=== PATIENT | female | born 1985 | race Caucasian/White ===

== ENCOUNTER → 2020-03-10 14:26 | Outpatient (BNVA) | payer OTHER, SELFPAY | PROVIDERS: Family Provider Nurse Practitioner; PCP Family Medicine; Visit Provider Nurse Practitioner Family | DX: Z11.59 Encounter for screening for other viral diseases (principal); J06.9 Acute upper respiratory infection, unspecified | CPT/HCPCS: 87635 ==

== ENCOUNTER 2020-03-15 16:05 | Emergency (ER) | payer OTHER, SELFPAY ==
[2020-03-15 16:08] VITALS: BP 121/82; PULSE 83; RESP 18; TEMP 36.5; O2SAT 97; BMI 22.8
--- NOTE | 2020-03-15 16:38 | XRR_ITS ---
PROCEDURE INFORMATION: Exam: XR Chest, 1 View Exam date and time: 03/15/2020 4:39 PM Age: 34 years old Clinical indication: Chest pain TECHNIQUE: Imaging protocol: XR of the chest Views: 1 view. COMPARISON: No relevant prior studies available. FINDINGS: Lungs: Lungs are clear bilaterally. Pleural space: No pleural effusion. No pneumothorax. Heart/Mediastinum: The cardiac silhouette and mediastinal contours are unremarkable. Bones/joints: Unremarkable for age. XR/XR chest 1V portable [id number] IMPRESSION: No acute cardiopulmonary process.
--- NOTE | 2020-03-15 16:38 | ECG_ITS ---
[facility] Test Date: 2020-03-15 Pat Name: Stephen Gonzalez Department: Room: Gender: Female [employer]: : 1985 Requested By: Maria D Contreras Order Number: [id number] Heber MD: Erik Zamora M.D. Measurements Intervals [place] Rate: 73 P: 74 DC: 154 QRS: 69 QRSD: 88 T: 59 QT: 389 QTc: 431 Interpretive Statements SINUS RHYTHM No previous ECG available for comparison Electronically Signed On 03-15-2020 18:37:36 [employer]RE [employer] by Erik Zamora M.D. [id number]
--- NOTE | 2020-03-15 16:50 | ED_ITS ---
HPI - Chest Pain General: Chief Complaint: Chest Pain Stated Complaint: [facility] sent concerns for blood clot/chest Time Seen by Provider: 03/15/20 16:18 History of Present Illness: HPI narrative: This patient is a 34-year-old female who is very fit and healthy. She comes in today with chest pain that is been going on for several days. She has been sick for 11 days with what sounds like Covid. Her and son both tested positive for Covid. She has had 3 Covid tests which have all been negative. One was done through [facility] as a send out and the other 2 were done at [facility]. 1 was done today at [facility] before she was sent back to the ER and was negative. She has had fevers, cough, shortness of breath and severe body aches. She said most of that had gotten better and she felt okay for a few days but then started getting this chest pain which was present throughout the illness but has worsened. She describes it as being across the lower part of her chest and through around to her back and up under her arms. It is worse with breathing. It is sharp. She also notes that her heart rate is very erratic. She is a runner and normally has a low heart rate in the 60s. She has been checking it since she has not felt well and is noticed a range anywhere from the 40s to 100 depending on her activity. She has no other significant medical history. No history of blood clots or heart problems. She is on dexamethasone and a azithromycin. MD complaint: chest pain Onset (ago): day(s) (11) Timing of current episode: constant Prior episodes: No Onset: during rest Pain location: subxiphoid Pain radiation: right arm, left arm, back, left shoulder and left scapula Severity: moderate Quality: tightness, aching and sharp Relieving factors: nothing Exacerbating factors: inspiration and movement Associated symptoms: Reports dyspnea, fever(s) and nausea; Deny abdominal pain or vomiting Review of Systems General: Reports: 10 or more systems reviewed and unremarkable except in HPI and below Const: Reports: fever(s), chills, fatigue and malaise Eyes: Denies: change in vision ENMT: Denies: odynophagia Card: Reports: chest pain; Denies: swelling of feet/ankles Resp: Reports: dyspnea and non-productive cough; Denies: productive cough GI: Reports: nausea; Denies: abdominal pain or vomiting : Denies: flank pain or difficulty voiding Musc: Denies: neck pain or back pain Skin/Breast: Denies: rash Neuro: Denies: headache(s), numbness in extremities or weakness in extremities Amish/Lymph: Denies: easy bruising or easy bleeding Physical Exam Const: COMMON NORMALS: no acute distress, patient oriented x3, no limitations and alert GENERAL APPEARANCE: cooperative and comfortable HENMT: HEAD & SCALP: normal to inspection FACE & SINUS: normal facial exam Eye: GENERAL EYE: appearance normal, both eyes and all related structures Neck/C-Spine: COMMON NORMALS: supple, no meningeal signs and no JVD Chest: COMMONS NORMALS: normal inspection of the chest Resp: COMMON NORMALS: normal respiratory effort, No use of accessory muscles and clear to auscultation bilaterally AUSCULTATION: clear to auscultation bilaterally Cardio: COMMON NORMALS: no JVD, regular rate, regular rhythm and No murmurs present (Cardio) RATE: regular rate RHYTHM: regular rhythm GI: COMMON NORMALS: Normal to inspection, nondistended, normoactive bowel sounds present, Soft to palpation and non-tender INSPECTION: Yes normal to inspection AUSCULTATION: Yes normoactive bowel sounds PALPATION: Yes Soft to palpation Back/Pelvis: COMMON NORMALS: thoracic and lumbar spine normal to inspection Extremity: COMMON NORMALS: normal to inspection Neuro: COMMON NORMALS: patient oriented x3, moves all extremities, no focal motor deficits and no sensory deficits noted SENSORIUM/ORIENTATION: Yes alert MENINGEAL SIGNS: Yes no meningeal signs Psych: COMMON NORMALS: mental status grossly normal, cooperative and normal affect Skin: COMMON NORMALS: no rashes or lesions noted and turgor normal GENERAL SKIN EXAM: no rashes or lesions noted and turgor normal Course ED course: This patient has been having Covid symptoms for 11 days but has tested negative multiple times. Her son and are both positive. She is here with pain across the lower part of her chest. Assuming that she may have actually had Covid and just tested negative she may be having some sort of myocardial injury but she could also just have pleurisy. Her work-up here is negative including EKG and troponin. I did set her up for an outpatient echo to be sure that structurally everything is normal. She will follow up with her PCP for further management. Vital Signs: Vital signs: Vital Signs Temperature 97.6 F 03/15/20 20:44 Pulse Rate 82 03/15/20 20:44 Respiratory Rate 16 03/15/20 20:44 Blood Pressure 124/62 03/15/20 20:44 Pulse Oximetry 96 03/15/20 20:44 MDM - Chest Pain Lab Data: Labs: Lab Results 03/15/20 03/15/20 03/15/20 Range/Units 11:35 11:35 17:00 WBC (4.0-10.0) 10^3/ uL RBC (4.1-5.3) 10^6/u L Hgb (11.5-15.3) g/dL Hct (37.0-47.0) % MCV (81-99) fL MCH (28.0-34.0) pg MCHC (30.0-36.0) g/dL RDW (12.1-15.1) % Plt Count (130-400) 10^3/c mm MPV (7.4-10.4) fL Neut % (Auto) % Lymph % (Auto) % [place] % (Auto) % Eos % (Auto) % Baso % (Auto) % Neut # (Auto) (1.8-7.7) 10^3/u L Lymph # (Auto) (0.8-4.8) 10^3/u L [place] # (Auto) (0.2-0.9) 10^3/u L Eos # (Auto) (0.0-0.8) 10^3/u L Baso # (Auto) (0.0-0.1) 10^3/u L Nucleated RBC % (a uto) % Nucleated RBCs # /100WBC PT (12.1-14.9) SECO NDS INR (0.8-1.2) D-Dimer (0-0.59) ug/mIFE U Sodium (136-145) mmol/L Potassium (3.5-5.1) mmol/L Chloride (98-107) mmol/L Carbon Dioxide (22-29) mmol/L Anion Gap (5-19) BUN (6-20) mg/dL Creatinine (0.5-0.9) mg/dL GFR Calculation (90-130) mL/min Glucose (65-115) mg/dL Calculated Osmolal ity (285-295) mOsm/k g Calcium (8.5-10.5) mg/dL Total Bilirubin (0.15-1.2) mg/dL AST (0-32) U/L ALT (0-33) U/L Alkaline Phosphata se (35-105) IU/L Creatine Kinase (26-192) U/L Troponin T Baselin e (0-10) ng/L Troponin T 120 Min chicken ranch (0-10) ng/L Delta Troponin T (0-10) ABS# C-Reactive Protein (0.0-4.9) mg/L Total Protein (6.6-8.7) g/dL Albumin (3.5-5.2) g/dL Globulin (1.3-4.6) g/dL Lipase (13-60) U/L HCG, Qual Negative (Negative) Influenza Type A A g Negative (Negative) Influenza Type B A g Negative (Negative) Group A Strep Rapi d Negative (Negative) 03/15/20 03/15/20 03/15/20 Range/Units 17:06 17:06 17:06 WBC 13.1 H (4.0-10.0) 10^3/ uL RBC 4.30 (4.1-5.3) 10^6/u L Hgb 13.7 (11.5-15.3) g/dL Hct 39.6 (37.0-47.0) % MCV 92.1 (81-99) fL MCH 31.9 (28.0-34.0) pg MCHC 34.6 (30.0-36.0) g/dL RDW 11.3 L (12.1-15.1) % Plt Count 379 (130-400) 10^3/c mm MPV 9.8 (7.4-10.4) fL Neut % (Auto) 89.8 % Lymph % (Auto) 6.3 % [place] % (Auto) 3.1 % Eos % (Auto) 0.1 % Baso % (Auto) 0.2 % Neut # (Auto) 11.76 H (1.8-7.7) 10^3/u L Lymph # (Auto) 0.8 (0.8-4.8) 10^3/u L [place] # (Auto) 0.4 (0.2-0.9) 10^3/u L Eos # (Auto) 0.0 (0.0-0.8) 10^3/u L Baso # (Auto) 0.0 (0.0-0.1) 10^3/u L Nucleated RBC % (a uto) 0 % Nucleated RBCs # 0.0 /100WBC PT 13.00 (12.1-14.9) SECO NDS INR 0.96 (0.8-1.2) D-Dimer 0.41 (0-0.59) ug/mIFE U Sodium 138 (136-145) mmol/L Potassium 4.6 (3.5-5.1) mmol/L Chloride 104 (98-107) mmol/L Carbon Dioxide 23 (22-29) mmol/L Anion Gap 15.6 (5-19) BUN 16 (6-20) mg/dL Creatinine 0.8 (0.5-0.9) mg/dL GFR Calculation 82.6 L (90-130) mL/min Glucose 123 H (65-115) mg/dL Calculated Osmolal ity 289 (285-295) mOsm/k g Calcium 10.0 (8.5-10.5) mg/dL Total Bilirubin 0.2 (0.15-1.2) mg/dL AST 25 (0-32) U/L ALT 48 H (0-33) U/L Alkaline Phosphata se 48 (35-105) IU/L Creatine Kinase 33 (26-192) U/L Troponin T Baselin e (0-10) ng/L Troponin T 120 Min chicken ranch (0-10) ng/L Delta Troponin T (0-10) ABS# C-Reactive Protein 0.3 (0.0-4.9) mg/L Total Protein 6.7 (6.6-8.7) g/dL Albumin 4.6 (3.5-5.2) g/dL Globulin 2.1 (1.3-4.6) g/dL Lipase 42 (13-60) U/L HCG, Qual (Negative) Influenza Type A A g (Negative) Influenza Type B A g (Negative) Group A Strep Rapi d (Negative) 03/15/20 03/15/20 Range/Units 17:06 19:03 WBC (4.0-10.0) 10^3/ uL RBC (4.1-5.3) 10^6/u L Hgb (11.5-15.3) g/dL Hct (37.0-47.0) % MCV (81-99) fL MCH (28.0-34.0) pg MCHC (30.0-36.0) g/dL RDW (12.1-15.1) % Plt Count (130-400) 10^3/c mm MPV (7.4-10.4) fL Neut % (Auto) % Lymph % (Auto) % [place] % (Auto) % Eos % (Auto) % Baso % (Auto) % Neut # (Auto) (1.8-7.7) 10^3/u L Lymph # (Auto) (0.8-4.8) 10^3/u L [place] # (Auto) (0.2-0.9) 10^3/u L Eos # (Auto) (0.0-0.8) 10^3/u L Baso # (Auto) (0.0-0.1) 10^3/u L Nucleated RBC % (a uto) % Nucleated RBCs # /100WBC PT (12.1-14.9) SECO NDS INR (0.8-1.2) D-Dimer (0-0.59) ug/mIFE U Sodium (136-145) mmol/L Potassium (3.5-5.1) mmol/L Chloride (98-107) mmol/L Carbon Dioxide (22-29) mmol/L Anion Gap (5-19) BUN (6-20) mg/dL Creatinine (0.5-0.9) mg/dL GFR Calculation (90-130) mL/min Glucose (65-115) mg/dL Calculated Osmolal ity (285-295) mOsm/k g Calcium (8.5-10.5) mg/dL Total Bilirubin (0.15-1.2) mg/dL AST (0-32) U/L ALT (0-33) U/L Alkaline Phosphata se (35-105) IU/L Creatine Kinase (26-192) U/L Troponin T Baselin e 6 (0-10) ng/L Troponin T 120 Min chicken ranch 6.00 (0-10) ng/L Delta Troponin T 0 (0-10) ABS# C-Reactive Protein (0.0-4.9) mg/L Total Protein (6.6-8.7) g/dL Albumin (3.5-5.2) g/dL Globulin (1.3-4.6) g/dL Lipase (13-60) U/L HCG, Qual (Negative) Influenza Type A A g (Negative) Influenza Type B A g (Negative) Group A Strep Rapi d (Negative) Discharge Plan Discharge Patient Disposition: Home Clinical Impression: Acute viral syndrome, Exposure to SARS-associated coronavirus Chest pain Qualifiers: Chest pain type: unspecified Qualified Code(s): R07.9 - Chest pain, unspecified Condition: Stable Prescriptions: No Action albuterol sulfate 90 mcg/actuation HFA aerosol inhaler 2 inh inhalation QID PRN (Reason: shortness of breath or wheezing) Qty: 8.5 RF: 0 dexamethasone 6 mg tablet 6 mg PO DAILY Qty: 7 RF: 0 azithromycin 250 mg tablet See Rx Instructions PO .COMPLEX Qty: 6 RF: 0 ibuprofen 200 mg Tablet 600 mg PO PRN RF: 0 Vitamin C 1 tab PO DAILY RF: 0 Vitamin D3 1 tab PO DAILY RF: 0 zinc 1 tab PO DAILY RF: 0 Discharge Orders: Discharge Order (Routine); Ordered 03/15/20 Ordered By: Maria D Kumar Other Ambulatory Orders: CV echo complete* [id number] (Routine) Timeframe: 1 Week Facility: [facility] - Location: Radiology Ordered By: Maria D Kumar ECG holter monitor 24 hour (Routine) Timeframe: 1 Week Facility: [facility] - Location: Cardiac Diagnostic Laboratory Ordered By: Maria D Kumar Referrals: Home Bourne MD [Primary Care Provider] - Discharge Diet: Usual diet Discharge Activity: Limit activity as instructed Patient Instructions: Chest Pain (ED) Activity Restrictions/Additional Instructions: No strenuous exercise until you have completed follow up with Dr. Bourne. Return to the ED if new or worse symptoms. Coding Level of Care Code ED Emergency Department Nurse for Chg Fwd Exam Comprehensive
[2020-03-15 17:29] LABS: Basophils % 0.2 %; Eosinophils % 0.1 %; Hematocrit 39.6 % (37.0-47.0); Hemoglobin 13.7 g/dL (11.5-15.3); Lymphocytes # 0.8 10^3/uL (0.8-4.8); Lymphocytes % 6.3 %; Mean Corpuscular HGB Conc 34.6 g/dL (30.0-36.0); Mean Corpuscular Hemoglobin 31.9 pg (28.0-34.0); Mean Corpuscular Volume 92.1 fL (81-99); Mean Platelet Volume 9.8 fL (7.4-10.4); Monocytes # 0.4 10^3/uL (0.2-0.9); Monocytes % 3.1 %; Neutrophils # 11.76 10^3/uL (1.8-7.7); Neutrophils % 89.8 %; Nucleated Red Blood Cells % 0 %; Platelet Count 379 10^3/cmm (130-400); Red Cell Distribution Width 11.3 % (12.1-15.1); White Blood Count 13.1 10^3/uL (4.0-10.0)
[2020-03-15 17:46] LABS: HCG Qualitative Urine. Negative (Negative)
[2020-03-15 17:47] VITALS: BP 126/64; PULSE 70; RESP 17; O2SAT 98
[2020-03-15 17:51] LABS: INR 0.96 (0.8-1.2)
[2020-03-15 17:53] LABS: D Dimer 0.41 ug/mIFEU (0-0.59)
[2020-03-15 17:57] LABS: Alanine Aminotransferase 48 U/L (0-33); Albumin Level 4.6 g/dL (3.5-5.2); Alkaline Phosphatase 48 IU/L (35-105); Anion Gap 15.6 (5-19); Aspartate Amino Transferase 25 U/L (0-32); Blood Urea Nitrogen 16 mg/dL (6-20); C Reactive Protein 0.3 mg/L (0.0-4.9); Carbon Dioxide 23 mmol/L (22-29); Chloride 104 mmol/L (98-107); Creatine Phosphokinase 33 U/L (26-192); Globulin 2.1 g/dL (1.3-4.6); Glomerular Filtration Rate 82.6 mL/min (90-130); Glucose 123 mg/dL (65-115); Lipase 42 U/L (13-60); Osmolality Calculated 289 mOsm/kg (285-295); Potassium 4.6 mmol/L (3.5-5.1); Sodium 138 mmol/L (136-145); Total Bilirubin 0.2 mg/dL (0.15-1.2); Total Protein 6.7 g/dL (6.6-8.7)
[2020-03-15 17:58] LABS: Troponin(5th) Baseline 6 ng/L (0-10)
--- NOTE | 2020-03-15 18:38 | ECG_ITS ---
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 Measurements Intervals [place] Rate: 66 P: 78 SD: 164 QRS: 64 QRSD: 97 T: 59 QT: 422 QTc: 443 Interpretive Statements SINUS RHYTHM Compared to ECG 03/15/2020 17:08:14 No significant changes Electronically Signed On 03-15-2020 18:55:02 [employer]TER[employer]PECT[employer] by Erik Zamora M.D. [id number]
[2020-03-15 19:12] VITALS: BP 125/74; PULSE 60; RESP 16; O2SAT 98
[2020-03-15 19:59] LABS: Rapid Strep A Test Negative (Negative)
[2020-03-15 20:09] LABS: Troponin 5 2HR Delta 0 ABS# (0-10)
[2020-03-15 20:09] LABS: Influenza A by IFA Negative (Negative); Influenza B by IFA Negative (Negative)
[2020-03-15 20:44] VITALS: BP 124/62; PULSE 82; RESP 16; TEMP 36.4; O2SAT 96
--- NOTE | 2020-03-16 14:52 | DCPLANNER ---
client integration manager had message to schedule an out patient echo cardiogram and an out patient holter monitor for patient. client integration manager faxed orders to centralized scheduling for echo and [facility] for halter monitor. client integration manager will call for appointment information.
--- NOTE | 2020-03-18 10:55 | DCPLANNER ---
Patient has a follow up appointment scheduled for a monitor at [facility] scheduled for Monday, May 06, 2020 at 1:30. Clinic called patient with appointment information.
--- NOTE | 2020-03-25 10:56 | DCPLANNER ---
An echo was scheduled for patient, the order was cancelled due to patient request. Patient would like to speak with primary care.
--- NOTE | 2020-05-15 14:37 | DCPLANNER ---
Patient had an appointment scheduled with heart care for 05.06.20 - patient did not attend appointment.
== END 2020-03-15 20:46 | disposition home or self-care (01) ==
PROVIDERS: Emergency Provider Emergency Medicine; PCP Family Medicine
DX: Z20.828 Contact with and (suspected) exposure to other viral communicable diseases (principal); B34.9 Viral infection, unspecified; R07.9 Chest pain, unspecified
CPT/HCPCS: 12345; 71045; 80053; 81025; 82550; 83690; 84484; 85025; 85378; 85610; 86140; 87081; 87804; 87880; 93005; 99282; 99283

== ENCOUNTER → 2022-12-08 09:47 | Outpatient (BNVA) | payer OTHER, SELFPAY | PROVIDERS: PCP Family Medicine; Visit Provider Family Medicine | DX: N39.0 Urinary tract infection, site not specified (principal) | CPT/HCPCS: 81000; 87077; 87086; 87184 ==

== ENCOUNTER → 2023-02-14 14:47 | Outpatient (BNVA) | payer OTHER, SELFPAY | PROVIDERS: PCP Family Medicine; Visit Provider Nurse Practitioner Family | DX: N39.0 Urinary tract infection, site not specified (principal) | CPT/HCPCS: 81003; 87077; 87086; 87184 ==